=== PATIENT | female | born 1990 | race Caucasian/White ===

== ENCOUNTER 2017-06-03 21:17 | Emergency (ER) | payer OTHER ==
[~2017-06-03] VITALS: Ht 149.9 cm; Wt 71.5 kg
[~2017-06-03 21:17] MED LIST: ADVAIR 250/501 DISK IH; ALBUTEROL17 GM; BACTRIM,SEPT1 TABLET PO; BUTALB-APAP-CA1 EACH PO; CLEOCIN300 MG PO; COLACE100 MG PO; FERROUS SULFAT325 MG PO; FLINTSTONES M100 MCG PO; IBUPROFEN800 MG; IBUPROFEN800 MG PO; IRON240 MG PO; MOTRIN600 MG PO; NOHOMEMEDS; OXYCODONE-APAP1 EACH PO; VENTOLIN HFA18 GM IH; ZANTAC150 MG PO
[2017-06-04 00:22] LABS: HEMATOCRIT 40.3 % (36.0-46.0); MCH 28.6 PG (29.0-34.0); MCHC 33.7 G/DL (30.0-36.0); MCV 84.7 FL (83-99); MEAN PLAT.VOLUME 9.6 uM^3 (9.5-12.4); PLATELET COUNT 286 K/uL (156-360); RBC DIS.WIDTH-CV 12.1 % (11.8-14.6); RBC DIS.WIDTH-SD 37.2 % (39-53); RED BLOOD COUNT 4.76 M/uL (3.80-5.20)
[2017-06-04 00:36] LABS: CHLORIDE 107 mEq/L (99-109); POTASSIUM 3.6 mEq/L (3.7-5.4); SODIUM 141 mEq/L (136-147)
[2017-06-04 00:38] LABS: GLUCOSE 85 mg/dL (70-99)
[2017-06-04 00:39] LABS: ANION GAP 12 MEQ/L (2-14)
[2017-06-04 00:40] LABS: TOTAL BILIRUBIN 0.6 mg/dL (0.0-1.0)
[2017-06-04 00:42] LABS: ALKALINE PHOSPHATASE 53 IU/L (3-129); GFR ESTIMATE (CALCULATED) > 59 mL/min/
[2017-06-04 00:43] LABS: UREA NITROGEN (BUN) 8 mg/dL (9-23)
[2017-06-04 00:51] LABS: QUANTITATIVE HCG < 4.0 MIU/ML
[2017-06-04 01:21] LABS: ERTH.SED.RATE 8 MM/HR (0-20)
[2017-06-04] MEDS ORDERED: FIORICET 50-301 EACH PO (01:37)
[2017-06-04 01:59] VITALS: BP 137/92
[2017-06-04 03:10] LABS: C-REACTIVE PROTEIN 4.9 MG/L (0-10)
== END 2017-06-04 01:59 | disposition home or self-care (01) ==
LOC: EME 21:17
PROVIDERS: Physician Assistant
DX: R51 Headache (principal); J45.909 Unspecified asthma, uncomplicated
CPT/HCPCS: 80053; 84702; 85027; 85651; 86140; 99281; 99285; J1200; J1885; J2765; J7030